=== PATIENT | male | born 1960 | race African-American/Black ===

== ENCOUNTER 2021-11-12 09:32 | Inpatient (IN) | payer OTHER, MEDICARE ==
[2021-11-12 09:59] LABS: #Eosinphils 0.1 thou/uL (0.0-0.7); #Lymphocytes 1.3 thou/uL (1.20-3.40); #Monocytes 0.3 thou/uL (0.11-0.59); #Neutrophils 2.5 thou/uL (1.40-6.50); %Basophils 0.8 % (0.0-1.0); %Eosinophils 1.7 % (0.0-10.0); %Monocytes 7.4 % (0.0-10.0); %Neutrophils 59.1 % (42.0-75.0); Hemoglobin 11.9 g/dL (14.0-18.0); Mean Corpuscular HGB CONC 34.7 g/dL (32.0-36.0); Mean Corpuscular Hemoglobin 33.3 pg (27.0-31.0); Mean Corpuscular Volume 95.9 fL (78.0-98.0); Platelet Count 142 thou/uL (130-400); RBC Distribution Width 13.1 % (11.5-14.5); Red Blood Cell (RBC) Count 3.57 mill/uL (4.70-6.10); White Blood Cell (WBC) Count 4.3 thou/uL (4.8-10.8)
[2021-11-12 10:12] LABS: Acetaminophen Less than 10.0 mcg/mL (10.0-30.0); Alcohol 197 mg/dL (Less than 10); Salicylate Less than 8.0 mg/dL (15.0-30.0)
[2021-11-12 10:13] LABS: ALT (SGPT) 132 U/L (8-55); AST (SGOT) 150 U/L (5-34); Alkaline Phosphatase 44 U/L (40-110); Anion Gap 15 mmol/L (10-20); BUN (Urea Nitrogen) 12 mg/dL (8.4-25.7); Bilirubin, Total 0.7 mg/dL (0.2-1.2); Calc. Creatinine Clearance 0 mL/min (70-130); Calcium 8.6 mg/dL (7.8-10.44); Carbon Dioxide 20 mmol/L (23-31); Chloride 104 mmol/L (98-107); Estimated GFR 98; Globulin 3.4 g/dL (2.4-3.5); Glucose 93 mg/dL (80-115); Potassium 3.8 mmol/L (3.5-5.1); Protein, Total 7.4 g/dL (5.8-8.1); Sodium 135 mmol/L (136-145)
[2021-11-12 10:21] LABS: INR-International Normal Ratio 1.1
[2021-11-12 10:22] LABS: PTT 27.7 sec (22.9-36.1)
[2021-11-12] MEDS ORDERED: Ondansetron PF 4 MG/2 ML Vial IVP PRN (12:05)
[2021-11-12] MEDS ORDERED: Promethazine HCl 25 MG/ML VIAL IM PRN (12:05)
[2021-11-12] MEDS ORDERED: Sodium Chloride 0.9% 1,000 ML IV SCH (12:15)
[2021-11-12] MEDS ORDERED: Iopamidol-370 76% 500 ML 1 ML ONE (12:55)
[2021-11-12] MEDS ORDERED: Amlodipine 10 MG TAB PO SCH (13:15)
[2021-11-12] MEDS ORDERED: Acetaminophen 500 MG TAB PO SCH ×2 (13:45→20:00)
[2021-11-12] MEDS ORDERED: Oxazepam 10 MG CAP PO SCH ×2 (13:45→20:00)
[2021-11-12] MEDS ORDERED: Labetalol HCl 100 MG/20 ML VIAL SLOW IVP SCH (13:45)
[2021-11-12] MEDS: hydrALAZINE 20 MG/ML VIAL SLOW IVP PRN ×2 (13:59→19:48)
[2021-11-12] MEDS ORDERED: Lisinopril 20 MG TAB PO SCH (16:15)
[2021-11-12 16:49] VITALS: BMI 24.8
[2021-11-12] MEDS ORDERED: Lorazepam 2 MG/ML VIAL SLOW IVP PRN (17:32)
[2021-11-12] MEDS ORDERED: Acetaminophen 325 MG TAB PO PRN (17:33)
[2021-11-12] MEDS ORDERED: Lorazepam 1 MG TAB PO PRN (17:35)
[2021-11-12] MEDS ORDERED: Lorazepam 2 MG/ML VIAL IM PRN (17:35)
[2021-11-12] MEDS ORDERED: Ondansetron ODT 4 MG TAB PO PRN (17:35)
[2021-11-12] MEDS ORDERED: Electrolyte Replacement Protocol 1 EACH FS SCH (17:45)
[2021-11-12 17:58] LABS: #Lymphocytes 1.2 thou/uL (1.20-3.40); #Monocytes 0.4 thou/uL (0.11-0.59); #Neutrophils 7.1 thou/uL (1.40-6.50); %Basophils 0.4 % (0.0-1.0); %Eosinophils 0.1 % (0.0-10.0); %Lymphocytes 13.4 % (21.0-51.0); %Monocytes 4.1 % (0.0-10.0); Hemoglobin 12.6 g/dL (14.0-18.0); Mean Corpuscular HGB CONC 34.9 g/dL (32.0-36.0); Mean Corpuscular Hemoglobin 33.2 pg (27.0-31.0); Mean Corpuscular Volume 95.2 fL (78.0-98.0); Mean Platelet Volume 8.1 fL (7.4-10.4); Platelet Count 158 thou/uL (130-400); RBC Distribution Width 13.1 % (11.5-14.5); Red Blood Cell (RBC) Count 3.78 mill/uL (4.70-6.10); White Blood Cell (WBC) Count 8.7 thou/uL (4.8-10.8)
[2021-11-12] MEDS ORDERED: Multivit, Therapeutic 1 TAB PO SCH (18:00)
[2021-11-12] MEDS ORDERED: Folic Acid 1 MG TAB PO SCH (18:00)
[2021-11-12] MEDS: Lorazepam 1 MG TAB PO SCH ×2 (18:00→23:57)
[2021-11-12] MEDS: Thiamine HCl 200 MG/2 ML VIAL SLOW IVP SCH (18:04)
[2021-11-12 18:22] LABS: ALT (SGPT) 125 U/L (8-55); AST (SGOT) 118 U/L (5-34); Albumin 4.2 g/dL (3.4-4.8); Alkaline Phosphatase 47 U/L (40-110); Anion Gap 17 mmol/L (10-20); BUN (Urea Nitrogen) 10 mg/dL (8.4-25.7); Bilirubin, Direct 0.5 mg/dL (0.1-0.3); Bilirubin, Total 1.2 mg/dL (0.2-1.2); Calc. Creatinine Clearance 134 mL/min (70-130); Calcium 8.9 mg/dL (7.8-10.44); Carbon Dioxide 18 mmol/L (23-31); Chloride 102 mmol/L (98-107); Estimated GFR 104; Globulin 3.8 g/dL (2.4-3.5); Glucose 67 mg/dL (80-115); Magnesium 1.6 mg/dL (1.6-2.6); Phosphorus 2.8 mg/dL (2.3-4.7); Sodium 133 mmol/L (136-145)
[2021-11-12] MEDS: Carvedilol 6.25 MG TAB PO SCH (19:48)
[2021-11-12] MEDS: levETIRAcetam 500 MG TAB PO SCH (19:48)
[2021-11-12] MEDS ORDERED: Diazepam 5 MG TAB PO SCH (20:00)
[2021-11-12] MEDS: Labetalol HCl 100 MG/20 ML VIAL SLOW IVP PRN (23:13)
[2021-11-13] MEDS ORDERED: Magnesium 2 GM/50 ML(in water) 2 GM in Premix Bag 1 BAG IVPB SCH (01:00)
[2021-11-13] MEDS: hydrALAZINE 20 MG/ML VIAL SLOW IVP PRN (01:52)
[2021-11-13] MEDS: Lorazepam 1 MG TAB PO SCH ×2 (05:47→11:22)
[2021-11-13] MEDS: Amlodipine 5 MG TAB PO SCH (08:44)
[2021-11-13] MEDS: Multivit, Therapeutic 1 TAB PO SCH (08:45)
[2021-11-13] MEDS: Lisinopril 20 MG TAB PO SCH (08:45)
[2021-11-13] MEDS: Carvedilol 6.25 MG TAB PO SCH (08:45)
[2021-11-13] MEDS: Folic Acid 1 MG TAB PO SCH (08:45)
[2021-11-13] MEDS: levETIRAcetam 500 MG TAB PO SCH ×2 (08:45→21:42)
[2021-11-13] MEDS ORDERED: Folic Acid 1 MG TAB PO SCH (09:00)
[2021-11-13] MEDS ORDERED: Thiamine 100 MG TAB PO SCH (09:00)
[2021-11-13] MEDS ORDERED: Sodium Chloride 0.9% 1,000 ML IV SCH ×2 (10:45)
[2021-11-13] MEDS: Sodium Chloride 1 GM TAB PO SCH ×2 (12:08→21:36)
[2021-11-13] MEDS ORDERED: Lorazepam 2 MG/ML VIAL SLOW IVP SCH (12:40)
[2021-11-13] MEDS ORDERED: Oxazepam 10 MG CAP PO SCH ×2 (13:00→13:15)
[2021-11-13 14:49] LABS: INR-International Normal Ratio 1.2; PTT 29.8 sec (22.9-36.1); Prothrombin Time 14.9 sec (12.0-14.7)
[2021-11-13 15:02] LABS: Anion Gap 15 mmol/L (10-20); BUN (Urea Nitrogen) 8 mg/dL (8.4-25.7); Calc. Creatinine Clearance 147 mL/min (70-130); Carbon Dioxide 21 mmol/L (23-31); Chloride 96 mmol/L (98-107); Estimated GFR 106; Glucose 113 mg/dL (80-115); Magnesium 2.2 mg/dL (1.6-2.6); Phosphorus 2.2 mg/dL (2.3-4.7); Potassium 4.4 mmol/L (3.5-5.1); Sodium 128 mmol/L (136-145)
[2021-11-13] MEDS ORDERED: Furosemide 20 MG/2 ML VIAL SLOW IVP SCH (16:00)
[2021-11-13] MEDS: Sodium Chloride 0.9% 1,000 ML IV SCH (17:16)
[2021-11-13] MEDS ORDERED: Lorazepam 0.5 MG TAB PO PRN (17:36)
[2021-11-13] MEDS ORDERED: Lorazepam 1 MG TAB PO PRN (17:36)
[2021-11-13] MEDS: Thiamine HCl 200 MG/2 ML VIAL SLOW IVP SCH (18:24)
[2021-11-13] MEDS: Oxazepam 10 MG CAP PO SCH (18:25)
[2021-11-13 18:33] LABS: Bacteria/HPF None Seen HPF (None Seen); Bilirubin Negative (Negative); Blood, Urine Negative (Negative); Clarity Clear (Clear); Glucose, Urine (Dipstick) Normal (Negative); Ketone, Urine Negative (Negative); Leukocyte Negative Leu/uL (Negative); Nitrite Negative (Negative); Protein, Urine (Dipstick) Negative (Neg-Trace); RBC/HPF 0-3 HPF (0-3); Specific Gravity, Urine 1.007 (1.002-1.036); Squamous Epithelial None Seen HPF (0-3); Urobilinogen Normal mg/dL (Less than 2); WBC/HPF 0-3 HPF (0-3)
[2021-11-13 18:36] LABS: Urine Culture Reflex No No
[2021-11-13] MEDS ORDERED: Carvedilol 6.25 MG TAB PO SCH (21:00)
[2021-11-13] MEDS: Labetalol HCl 100 MG/20 ML VIAL SLOW IVP PRN (21:02)
[2021-11-13] MEDS: Melatonin 3 MG TAB PO SCH (21:36)
[2021-11-13] MEDS: levETIRAcetam 500 MG/5 ML VIAL SLOW IVP SCH (21:36)
[2021-11-13] MEDS ORDERED: Lorazepam (BATCHED) 2 MG/ML SYR SLOW IVP PRN (21:38)
[2021-11-13 23:24] LABS: BUN (Urea Nitrogen) 9 mg/dL (8.4-25.7); Calc. Creatinine Clearance 140 mL/min (70-130); Calcium 9.1 mg/dL (7.8-10.44); Chloride 94 mmol/L (98-107); Estimated GFR 105; Glucose 135 mg/dL (80-115); Potassium 3.6 mmol/L (3.5-5.1); Sodium 128 mmol/L (136-145)
[2021-11-13 23:33] LABS: Carbon Dioxide 23 mmol/L (23-31)
[2021-11-13 23:36] LABS: Phosphorus 1.8 mg/dL (2.3-4.7)
[2021-11-13 23:38] LABS: Anion Gap 15 mmol/L (10-20)
[2021-11-14] MEDS: Oxazepam 10 MG CAP PO SCH ×4 (00:02→18:12)
[2021-11-14] MEDS: Sodium Chloride 0.9% 1,000 ML IV SCH ×3 (00:02→18:09)
[2021-11-14] MEDS: Sodium Chloride 1 GM TAB PO SCH ×3 (03:44→21:42)
[2021-11-14 04:45] LABS: Anion Gap 15 mmol/L (10-20); BUN (Urea Nitrogen) 8 mg/dL (8.4-25.7); Calc. Creatinine Clearance 149 mL/min (70-130); Calcium 8.7 mg/dL (7.8-10.44); Carbon Dioxide 22 mmol/L (23-31); Chloride 96 mmol/L (98-107); Estimated GFR 107; Glucose 114 mg/dL (80-115); Phosphorus 2.5 mg/dL (2.3-4.7); Potassium 4.3 mmol/L (3.5-5.1); Sodium 129 mmol/L (136-145)
[2021-11-14] MEDS ORDERED: Magnesium 2 GM/50 ML(in water) 2 GM in Premix Bag 1 BAG IVPB SCH (08:00)
[2021-11-14] MEDS: PHOS-NAK 1 PKT PACK PO SCH ×2 (09:04→13:15)
[2021-11-14] MEDS: Amlodipine 5 MG TAB PO SCH (09:06)
[2021-11-14] MEDS: Folic Acid 1 MG TAB PO SCH (09:07)
[2021-11-14] MEDS: Carvedilol 6.25 MG TAB PO SCH ×2 (09:07→21:42)
[2021-11-14] MEDS: Lisinopril 20 MG TAB PO SCH (09:08)
[2021-11-14] MEDS: levETIRAcetam 500 MG/5 ML VIAL SLOW IVP SCH (09:08)
[2021-11-14] MEDS: Multivit, Therapeutic 1 TAB PO SCH (09:09)
[2021-11-14 16:53] LABS: Anion Gap 13 mmol/L (10-20); BUN (Urea Nitrogen) 8 mg/dL (8.4-25.7); Calc. Creatinine Clearance 148 mL/min (70-130); Calcium 8.7 mg/dL (7.8-10.44); Carbon Dioxide 24 mmol/L (23-31); Chloride 99 mmol/L (98-107); Estimated GFR 106; Glucose 115 mg/dL (80-115); Potassium 3.7 mmol/L (3.5-5.1); Sodium 132 mmol/L (136-145)
[2021-11-14] MEDS ORDERED: Lorazepam 1 MG TAB PO PRN (17:36)
[2021-11-14] MEDS ORDERED: Lorazepam 0.5 MG TAB PO SCH (17:45)
[2021-11-14] MEDS: Thiamine HCl 200 MG/2 ML VIAL SLOW IVP SCH (18:10)
[2021-11-14] MEDS: Melatonin 3 MG TAB PO SCH (21:42)
[2021-11-14] MEDS: levETIRAcetam 500 MG TAB PO SCH (21:43)
[2021-11-15] MEDS: Sodium Chloride 0.9% 1,000 ML IV SCH ×2 (00:55→08:28)
[2021-11-15] MEDS: Oxazepam 10 MG CAP PO SCH ×4 (00:55→17:40)
[2021-11-15] MEDS: Sodium Chloride 1 GM TAB PO SCH ×3 (03:53→21:11)
[2021-11-15 04:24] LABS: Anion Gap 12 mmol/L (10-20); BUN (Urea Nitrogen) 6 mg/dL (8.4-25.7); Calc. Creatinine Clearance 139 mL/min (70-130); Calcium 8.2 mg/dL (7.8-10.44); Carbon Dioxide 23 mmol/L (23-31); Chloride 101 mmol/L (98-107); Estimated GFR 104; Glucose 170 mg/dL (80-115); Magnesium 2.1 mg/dL (1.6-2.6); Phosphorus 2.6 mg/dL (2.3-4.7); Potassium 3.3 mmol/L (3.5-5.1); Sodium 133 mmol/L (136-145)
[2021-11-15] MEDS ORDERED: Potassium Phosphate 30 MMOL in Sodium Chloride 0.9% 250 ML 250 ML IVPB SCH (05:00)
[2021-11-15] MEDS: Amlodipine 5 MG TAB PO SCH (08:26)
[2021-11-15] MEDS: Carvedilol 6.25 MG TAB PO SCH ×2 (08:26→21:11)
[2021-11-15] MEDS: Folic Acid 1 MG TAB PO SCH (08:26)
[2021-11-15] MEDS: levETIRAcetam 500 MG TAB PO SCH ×2 (08:27→21:11)
[2021-11-15] MEDS: Lisinopril 20 MG TAB PO SCH (08:27)
[2021-11-15] MEDS: Multivit, Therapeutic 1 TAB PO SCH (08:27)
[2021-11-15] MEDS: Thiamine 100 MG TAB PO SCH (08:28)
[2021-11-15] MEDS: Polyethylene Glycol 3350 17 GM Packet PO SCH (08:30)
[2021-11-15] MEDS: Senokot S 8.6-50 MG TAB PO SCH ×2 (08:30→21:11)
[2021-11-15] MEDS ORDERED: Potassium Chloride 20 MEQ TAB PO SCH (09:00)
[2021-11-15] MEDS ORDERED: Lorazepam 0.5 MG TAB PO PRN (17:36)
[2021-11-15] MEDS: Melatonin 3 MG TAB PO SCH (21:11)
[2021-11-16] MEDS: Oxazepam 10 MG CAP PO SCH ×3 (00:36→13:46)
[2021-11-16 04:04] LABS: Anion Gap 10 mmol/L (10-20); BUN (Urea Nitrogen) 8 mg/dL (8.4-25.7); Calc. Creatinine Clearance 135 mL/min (70-130); Calcium 8.6 mg/dL (7.8-10.44); Carbon Dioxide 24 mmol/L (23-31); Chloride 103 mmol/L (98-107); Estimated GFR 104; Glucose 100 mg/dL (80-115); Phosphorus 3.2 mg/dL (2.3-4.7); Potassium 3.8 mmol/L (3.5-5.1); Sodium 133 mmol/L (136-145)
[2021-11-16] MEDS: Sodium Chloride 1 GM TAB PO SCH ×2 (04:55→13:46)
[2021-11-16] MEDS: Senokot S 8.6-50 MG TAB PO SCH (08:04)
[2021-11-16] MEDS: Multivit, Therapeutic 1 TAB PO SCH (08:04)
[2021-11-16] MEDS: Folic Acid 1 MG TAB PO SCH (08:04)
[2021-11-16] MEDS: levETIRAcetam 500 MG TAB PO SCH (08:04)
[2021-11-16] MEDS: Thiamine 100 MG TAB PO SCH (08:04)
[2021-11-16] MEDS: Lisinopril 20 MG TAB PO SCH (08:04)
[2021-11-16] MEDS: Carvedilol 6.25 MG TAB PO SCH (08:05)
[2021-11-16] MEDS: Polyethylene Glycol 3350 17 GM Packet PO SCH (08:05)
[2021-11-16] MEDS: Amlodipine 5 MG TAB PO SCH (08:05)
[2021-11-16] MEDS ORDERED: Magnesium 2 GM/50 ML(in water) 2 GM in Premix Bag 1 BAG IVPB SCH (09:00)
[2021-11-16 11:32] VITALS: TEMP 98
[2021-11-16 15:44] VITALS: BP 163/101
== END 2021-11-16 15:39 | DRG 83 ==
LOC: ERS 09:32 → NEURO 11:36 → IMCU/EMU 11-13 19:09
PROVIDERS: ADMIT Surgery; ATTEND Surgery
PROC: HZ2ZZZZ Detoxification Services for Substance Abuse Treatment (ICD-10-PCS; principal; 2021-11-12)
DX: S06.6X9A Traumatic subarachnoid hemorrhage with loss of consciousness of unspecified duration, initial encounter (principal); F10.239 Alcohol dependence with withdrawal, unspecified; E87.1 Hypo-osmolality and hyponatremia; Z20.822 Contact with and (suspected) exposure to COVID-19; S06.5X9A Traumatic subdural hemorrhage with loss of consciousness of unspecified duration, initial encounter; S06.1X9A Traumatic cerebral edema with loss of consciousness of unspecified duration, initial encounter; Y90.6 Blood alcohol level of 120-199 mg/100 ml; I10 Essential (primary) hypertension; F10.229 Alcohol dependence with intoxication, unspecified; F32.9 Major depressive disorder, single episode, unspecified; E87.6 Hypokalemia; E83.39 Other disorders of phosphorus metabolism; Z98.890 Other specified postprocedural states; V86.59XA Driver of other special all-terrain or other off-road motor vehicle injured in nontraffic accident, initial encounter; Y92.410 Unspecified street and highway as the place of occurrence of the external cause; Z86.11 Personal history of tuberculosis; Z79.899 Other long term (current) drug therapy; R40.2132 Coma scale, eyes open, to sound, at arrival to emergency department; R40.2362 Coma scale, best motor response, obeys commands, at arrival to emergency department; R40.2242 Coma scale, best verbal response, confused conversation, at arrival to emergency department
CPT/HCPCS: 36415; 36416; 70450; 70486; 71260; 72125; 74177; 80048; 80053; 80307; 81001; 82248; 83735; 84100; 84484; 85025; 85610; 85730; 86850; 86900; 86901; 93005; G0390; J0360; J1940; J1953; J2060; J3411; J3475; J3490; J7050; Q9967; U0003; U0005